=== PATIENT | male | born 1960 | race Caucasian/White ===

== ENCOUNTER 2024-10-03 10:25 | Inpatient (IN) | payer MEDICARE, MEDICAID ==
[~2024-10-03] VITALS: Ht 170.2 cm; Wt 68.1 kg
[~2024-10-03 10:25] MED LIST: DIVA-112 PO; IBUP-1492 PO; PRED-554 PO; RISP-32 PO
[2024-10-03 11:05] VITALS: BP 120/62; PULSE 78; TEMP 98.9; O2SAT 99
[2024-10-03 11:08] LABS: COVID AG,FIA SOURCE NASAL SWAB
[2024-10-03 11:28] LABS: SARS-COV2 (COVID) ANTIGEN,FIA Negative (Negative)
[2024-10-03] MEDS: LORazepam 2 MG/ML VIAL IM ONE ×2 (11:28→14:45)
[2024-10-03 11:48] LABS: APPEARANCE,URINE HAZY (CLEAR); GLUCOSE, URINE (UA) NEGATIVE (NEGATIVE); LEUKOCYTE ESTERASE ,URINE LARGE (NEGATIVE); NITRATE,URINE NEGATIVE (NEGATIVE); OCCULT BLOOD,URINE TRACE (NEGATIVE); PH,URINE DRUG SCREEN 6.5 (5.0-8.0); SPECIFIC GRAVITIY, URINE 1.009 (1.003-1.030)
[2024-10-03 12:47] LABS: PLATELET COUNT (AUTO) 159 K/uL (150-450); RED BLOOD CELL COUNT(AUTO) 2.47 MIL/uL (4.50-5.90); RED CELL DISTRIBUTION WIDTH 17.5 % (11.5-14.5); WHITE BLOOD COUNT (AUTO) 2.4 K/uL (4.5-11.0)
[2024-10-03 13:00] LABS: CALCIUM, TOTAL 8.2 mg/dL (8.8-10.5); CREATININE 0.77 mg/dL (0.60-1.30); GLOMERULAR FILTR. RATE CALC > 60 mL/min (>60); GLUCOSE,RANDOM 89 mg/dL (70-110); SODIUM SERUM 135 mmol/L (136-145); UREA NITROGEN, BLOOD 8 mg/dL (7-18)
[2024-10-03 13:05] LABS: CREATINE KINASE, TOTAL ONLY 253 U/L (39-308)
[2024-10-03 13:08] LABS: ALCOHOL, BLOOD (SERUM) < 3 mg/dL (0-10)
[2024-10-03 13:10] LABS: TROPONIN I-HIGH SENSITIVITY 9 ng/L (<76)
[2024-10-03 13:17] LABS: ALCOHOL, URINE DRUG SCREEN NEGATIVE (NEGATIVE); AMPHET/METH SCREEN,URINE NEGATIVE (NEGATIVE); BARBITURATE SCREEN, URINE NEGATIVE (NEGATIVE); CANNABINOID SCREEN,URINE NEGATIVE (NEGATIVE); COCAINE SCREEN,URINE NEGATIVE (NEGATIVE); METHADONE SCREEN, URINE NEGATIVE (NEGATIVE)
[2024-10-03 13:18] LABS: RBC MORPHOLOGY COMMENT ABNORMAL RBC MORPH
[2024-10-03] MEDS: CefTRIAXone SODIUM 1 GM/VIAL IM ONE (13:41)
[2024-10-03] MEDS: LIDOCAINE/PF 1% 2 ML VIAL IM ONE (13:42)
[2024-10-03] MEDS: ZIPRASIDONE MESYLATE 20 MG/VIAL IM ONE (14:45)
[2024-10-03 22:45] VITALS: RESP 18
[2024-10-03] MEDS ORDERED: IPRATROPIUM BROMIDE 0.5 MG/2.5 ML NEB SOLUTION NEB PRN (23:30)
[2024-10-03] MEDS ORDERED: ALBUTEROL SULFATE 2.5 MG/0.5 ML NEB SOLUTION NEB PRN (23:30)
[2024-10-03] MEDS ORDERED: ONDANSETRON HCL 4 MG/2 ML VIAL IVP PRN (23:30)
[2024-10-03] MEDS ORDERED: ACETAMINOPHEN 325 MG TABLET PO PRN (23:30)
[2024-10-03] MEDS ORDERED: BISACODYL 10 MG RECTAL RECTAL SUPPOSITORY PR PRN (23:30)
[2024-10-03] MEDS ORDERED: ZOLPIDEM TARTRATE 5 MG TABLET PO PRN (23:30)
[2024-10-03] MEDS ORDERED: MAGNESIUM HYDROXIDE SUSPENSION 30 ML UDCUP PO PRN (23:30)
[2024-10-04] MEDS: HEPARIN SODIUM,PORCINE 5,000 UNITS/ML VIAL SQ SCH
[2024-10-04 04:00] VITALS: RESP 18
[2024-10-04] MEDS: PANTOPRAZOLE SODIUM 40 MG DR TABLET PO SCH (09:59)
[2024-10-04 10:07] LABS: HEPATITIS B CORE IGM Negative (Negative)
[2024-10-04] MEDS: CefTRIAXone 1 GM/DEXTROSE 50 ML IV SCH (13:30)
[2024-10-04 16:00] VITALS: RESP 16
[2024-10-04] MEDS ORDERED: OLANZapine 5 MG RAPDIS TABLET PO PRN (17:15)
[2024-10-04] MEDS ORDERED: MELATONIN 5 MG TABLET PO PRN (17:15)
[2024-10-04 19:30] VITALS: RESP 18
[2024-10-04 20:15] VITALS: RESP 18
[2024-10-04] MEDS ORDERED: DIVALPROEX SODIUM 500 MG ER TABLET PO SCH (21:00)
[2024-10-04] MEDS ORDERED: OLANZapine 5 MG RAPDIS TABLET PO SCH (21:00)
[2024-10-05] MEDS ORDERED: DULoxetine HCL 20 MG CAPSULE PO SCH (09:00)
== END 2024-10-04 21:00 | disposition short-term general hospital (02) | DRG 690 ==
LOC: EMS 10:35 → EDBD 10:35 → EDH 21:28 → 4E 22:47 → 6S 10-04 12:21
PROVIDERS: ADMIT Hospitalist; ATTEND Hospitalist
DX: N39.0 Urinary tract infection, site not specified (principal); Z59.00 Homelessness unspecified; F20.0 Paranoid schizophrenia; F10.20 Alcohol dependence, uncomplicated; F32.A Depression, unspecified; F41.9 Anxiety disorder, unspecified; Y90.0 Blood alcohol level of less than 20 mg/100 ml; F17.210 Nicotine dependence, cigarettes, uncomplicated; Z20.822 Contact with and (suspected) exposure to COVID-19; D72.819 Decreased white blood cell count, unspecified; Z55.9 Problems related to education and literacy, unspecified; Z63.9 Problem related to primary support group, unspecified; Z65.3 Problems related to other legal circumstances; Z88.8 Allergy status to other drugs, medicaments and biological substances
CPT/HCPCS: 80048; 80074; 80307; 81001; 82550; 84484; 85025; 87086; 96372; 99285; G0378; G0480; J0696; J1200; J1630; J1644; J2060; J3486; J3490